=== PATIENT | female | born 1950 | race Caucasian/White ===

== ENCOUNTER 2018-06-07 09:09 | Day surgery (SDC) | payer MEDICARE, BC, OTHER ==
[~2018-06-07] VITALS: Ht 160 cm; Wt 111.0 kg
[~2018-06-07 09:09] MED LIST: ASPIRIN E.C. 8181 MG PO; CARDIZEM CD 12120 MG PO; LIPITOR20 MG PO; LOPRESSOR 225 MG/TAB PO; SYNTHROID0.112 MG/T PO
[2018-06-07] MEDS ORDERED: DITROPAN XL15 MG PO (10:02)
[2018-06-07] MEDS ORDERED: CYANOCOBAL1000 MCG/1 IM (10:02)
[2018-06-07] MEDS ORDERED: NEXIUM 24HR20 M1 PO (10:04)
[2018-06-07 10:25] VITALS: BP 112/81; PULSE 88; TEMP 97.2
[2018-06-07 11:00] VITALS: BP 98/78; PULSE 77; TEMP 97.7
[2018-06-07 11:15] VITALS: BP 117/79; PULSE 66
[2018-06-07 11:27] VITALS: BP 120/65; PULSE 67
== END 2018-06-07 11:36 | disposition home or self-care (01) ==
LOC: SDCO 09:09
DX: K21.0 Gastro-esophageal reflux disease with esophagitis (principal); K22.70 Barrett's esophagus without dysplasia; K31.89 Other diseases of stomach and duodenum; D64.9 Anemia, unspecified; Z88.6 Allergy status to analgesic agent; Z79.82 Long term (current) use of aspirin; Z90.49 Acquired absence of other specified parts of digestive tract; Z90.710 Acquired absence of both cervix and uterus; Z86.010 Personal history of colon polyps
CPT/HCPCS: J2250; J3010; J7030

== ENCOUNTER → 2019-06-04 | Outpatient (CLI) | payer MEDICARE, BC, OTHER ==
[~2019-06-04] MED LIST changes: +CYANOCOBAL1000 MCG/1 IM; +DITROPAN XL15 MG PO; +NEXIUM 24HR20 M1 PO
[2019-06-04 13:11] LABS: HEMATOCRIT 41.7 % (37.0-47.0); MEAN CELL VOLUME 92 fl (80.0-100.0); MEAN CORPUSCULAR HEMOGLOBIN 29 pg (27.0-31.0); MEAN CORPUSCULAR HGB CONC 31 g/dl (33.0-37.0); MEAN PLATELET VOLUME 10.6 fl (7.4-10.4); PLATELET COUNT 225 K/mm3 (130-400); RED BLOOD COUNT 4.52 M/mm3 (4.10-5.30); REDCELL DISTRIBUTION WIDTH-CV 13.6 % (11.5-14.5)
[2019-06-04 13:42] LABS: TROPONIN-I < 0.012 ng/mL (0.000-0.035)
[2019-06-04 13:52] LABS: BLOOD UREA NITROGEN 10 mg/dL (7-17); CALCIUM 9.2 mg/dL (8.4-10.2); CARBON DIOXIDE 25 mmol/L (22-30); CHLORIDE 106 mmol/L (98-107); CREATININE, serum 0.77 (0.52-1.25); GLUCOSE 98 mg/dL (74-106); SODIUM 139 mmol/L (137-145)
[2019-06-04 13:54] LABS: ANION GAP 8 mmol/L (7-16)
== END ==
LOC: COL.RAD 12:26
PROVIDERS: Internal Medicine Interventional Cardiology
DX: R06.02 Shortness of breath (principal); R07.89 Other chest pain

== ENCOUNTER 2021-12-23 09:01 | Day surgery (SDC) | payer MEDICARE, BC, OTHER ==
[~2021-12-23] VITALS: Ht 160 cm; Wt 97.1 kg
[2021-12-23] MEDS ORDERED: BRILINTA60 MG PO (09:35)
[2021-12-23] MEDS ORDERED: MYRBETR50MG PO (09:36)
[2021-12-23] MEDS ORDERED: ELIQUIS 5MG PO (09:36)
[2021-12-23] MEDS ORDERED: PROVENTIL0.09 MG/A1 IH (09:37)
[2021-12-23] MEDS ORDERED: TOPROL XL 25MG25 MG PO (09:37)
[2021-12-23] MEDS ORDERED: LASIX 20MG TABL20 MG PO (09:38)
[2021-12-23] MEDS ORDERED: BREO IH (09:39)
[2021-12-23 10:35] VITALS: BP 114/71; PULSE 74; TEMP 98.1
[2021-12-23 10:50] VITALS: BP 103/73; PULSE 76
[2021-12-23 11:05] VITALS: BP 106/63; PULSE 68
--- NOTE | 2021-12-23 12:07 | NUR ---
1035: Patient arrived back into bay 2 from Procedure room. Report received. Patient requesting blueberry muffin and ice tea. Granddaughter at bedside. 1050: Patient vitally stable tolerating food and drink well. 1105: Patient vitally stable. Tolerated food and drink well. No complaint of pain or nausea. 1130: MD in to see patient. 1135: Patient up to restroom. 1145: Went through discharge instructions with patienet and granddaughter. Questions answered. IV removed without complication. 1150: Patient escorted to patient entrance via wheelchair. Patient left in the care of her granddaughter.
[2021-12-23 12:55] VITALS: BP 114/67; PULSE 82; TEMP 97.4
== END 2021-12-23 11:50 | disposition home or self-care (01) ==
LOC: SDCO 09:01
DX: K22.70 Barrett's esophagus without dysplasia (principal); K21.9 Gastro-esophageal reflux disease without esophagitis; Z86.010 Personal history of colon polyps; Z98.84 Bariatric surgery status
CPT/HCPCS: J2704; J7120